=== PATIENT | female | born 1995 | race Caucasian/White ===

== ENCOUNTER → 2020-05-21 11:38 | Outpatient (BNVA) | payer BC, SELFPAY | PROVIDERS: Visit Provider Internal Medicine Gastroenterology | DX: Z76.89 Persons encountering health services in other specified circumstances (principal) ==

== ENCOUNTER 2020-06-09 | Outpatient (REF) | payer BC, SELFPAY ==
[2020-06-14 14:50] LABS: FIT Int Ctl YES; FIT1 NEGATIVE (NEGATIVE); FIT2 NEGATIVE (NEGATIVE)
== END 2020-06-09 00:01 ==
LOC: HO.LNP
PROVIDERS: Visit Provider Internal Medicine Gastroenterology
DX: R19.7 Diarrhea, unspecified (principal); Z12.11 Encounter for screening for malignant neoplasm of colon
CPT/HCPCS: 82274

== ENCOUNTER → 2020-06-15 08:46 | Outpatient (BNVA) | payer BC, SELFPAY | PROVIDERS: PCP Nurse Practitioner Family; Referring Provider Nurse Practitioner Family; Visit Provider Surgery | DX: Z76.89 Persons encountering health services in other specified circumstances (principal) ==

== ENCOUNTER 2020-07-14 07:56 | Day surgery (SDC) | payer BC, SELFPAY ==
[2020-07-05 19:24] VITALS: BMI 66.4
--- NOTE | 2020-07-13 10:29 | HO.ANESPROP2 ---
Documented by User: Zoraida Granados 07/13/20 10:33 HPI - Anesthesia Eval Consult details Narrative: 25yo F for I&D Chronic Labia Majora Abscess Excision performed 03/2020 with GA-LMA 4 PMFSH Past Medical History Medical History Diarrhea Migraine Obesity (BMI 30.0-34.9) Family History Family History Father No problems noted. Mother No problems noted. Maternal Grandfather Cancer Maternal Grandmother Cancer Surgical History Surgical History H/O wisdom tooth extraction History of appendectomy History of incision and drainage Hx of tonsillectomy Social History Social History Household Members: Family Alcohol intake: current Alcohol intake frequency: a few times a month Smoking Status: Never smoker Second Hand Smoke Exposure: No Use of substances other than those prescribed or required for medical reasons: No Advance Directives: No Advance Directives Information Provided: No Advance Directives on File: No Recently lost weight without trying: No Meds Allergies Allergy/AdvReac Type Severity Reaction Status Date / Time nickel [NICKEL] AdvReac Intermediate RASH Verified 07/14/20 08:13 sumatriptan AdvReac Unknown Skin Verified 07/14/20 08:13 burning Home Medications Medication Instructions Recorded Confirmed Type biotin 10,000 mcg capsule mcg PO 05/21/20 05/21/20 History desogestrel-e.estradiol 0.15 1 tab PO DAILY 05/21/20 05/21/20 History mg-0.02 mg(21)/e.estrad 0.01 mg(5) tablet multivitamin 1 tab PO DAILY 05/21/20 05/21/20 History Exam Exam Date and Time: July 13, 2020 1029 Height,Weight and Vital Signs: Height 5 ft 3 in Weight 170 kg Pertinent Lab Results Pertinent Lab Results: Laboratory Tests 08/05/19 04/13/20 09:15 09:00 WBC 7.9 Hgb 14.2 Hct 39.9 Plt Count 397 Sodium 140 Potassium 4.0 Chloride 107 BUN 5 L Creatinine 0.77 Assessment and Plan Assessment Anesthesia Assessment: Chart Reviewed Documented by User: Val Anderson 07/14/20 09:08 PMFSH Past Medical History Medical History Diarrhea Migraine Obesity (BMI 30.0-34.9) Family History Family History Father No problems noted. Mother No problems noted. Maternal Grandfather Cancer Maternal Grandmother Cancer Surgical History Surgical History H/O wisdom tooth extraction History of appendectomy History of incision and drainage Hx of tonsillectomy Social History Social History Household Members: Family Alcohol intake: current Alcohol intake frequency: a few times a month Smoking Status: Never smoker Second Hand Smoke Exposure: No Use of substances other than those prescribed or required for medical reasons: No Advance Directives: No Advance Directives Information Provided: No Advance Directives on File: No Recently lost weight without trying: No Meds Allergies Allergy/AdvReac Type Severity Reaction Status Date / Time nickel [NICKEL] AdvReac Intermediate RASH Verified 07/14/20 08:13 sumatriptan AdvReac Unknown Skin Verified 07/14/20 08:13 burning Home Medications Medication Instructions Recorded Confirmed Type biotin 10,000 mcg capsule mcg PO 05/21/20 05/21/20 History desogestrel-e.estradiol 0.15 1 tab PO DAILY 05/21/20 05/21/20 History mg-0.02 mg(21)/e.estrad 0.01 mg(5) tablet multivitamin 1 tab PO DAILY 05/21/20 05/21/20 History Exam Airway Mallampati Class: I TM Dist: >3cm Neck ROM: Full Loose/Missing/Broken Teeth: No Heart: RRR Lungs: CTA Assessment and Plan Assessment Anesthesia Assessment: Anesthesia Plan Discussed and Chart Reviewed Final Anesthetic Review NPO: Yes ASA Class: II Final Preanesthetic Review: Meds/Allgs Chart Reviewed, Consent Obtained/Reviewed and Anes Risks/Benef Reviewed Patient Risk: Low Procedure Risk: Low Anesthetic Plan Anesthetic Plan: GA Disposition: Standard PACU
[2020-07-13 14:58] VITALS: BMI 30.1
[2020-07-14 08:18] VITALS: BP 129/59; PULSE 98; RESP 16; TEMP 36.4; O2SAT 98
[2020-07-14 08:22] LABS: UPreg QC Valid YES; Urine Pregnancy NEGATIVE (NEGATIVE)
[2020-07-14] MEDS: Lactated Ringers 1,000 ML 100 ML IVCONT (08:31)
--- NOTE | 2020-07-14 08:39 | PC.NURSE ---
MEDS CONFIRMED WITH PATIENT
--- NOTE | 2020-07-14 09:24 | MHC.SHP ---
Pre-Procedural Eval Section A The patient is an INPATIENT: No The History & Physical has been completed within 30 days and I have reviewed it.: Yes Section B Chief Complaint: Epidermoid Cyst of Labia Majora Allergies: Allergies Allergy/AdvReac Type Severity Reaction Status Date / Time nickel [NICKEL] AdvReac Intermediate RASH Verified 07/14/20 08:13 sumatriptan AdvReac Unknown Skin Verified 07/14/20 08:13 burning Plan Diagnosis/Plan: Unchanged Patient has been examined and remains a candidate for the planned procedure
[2020-07-14 10:20] VITALS: BP 113/58; PULSE 78; RESP 17; TEMP 36.1; O2SAT 100
[2020-07-14 10:25] VITALS: BP 104/48; PULSE 83; RESP 16; O2SAT 99
--- NOTE | 2020-07-14 10:29 | W.PM.OPN ---
Operative Note Operative Note Date of Service: 07/14/20 Narrative: Preoperative Diagnosis: Chronic abscess of right labia majora Postoperative diagnosis: Same Procedure: Debridement and marsupialization of chronic abscess right labia majora Anesthesia: General Laryngeal Mask Estimated Blood Loss: 10 cc Specimen: None Immediate Complications: None Indications: This is a 25 year old female who has an approximately 3 year history of recurrent pain and drainage from the inferior aspect of the right labia majora. Antibiotic therapy and prior excision have not lead to resolution of the process. Procedure in detail: With her in the lithotomy position following induction of adequate general anesthesia, time-out procedure was performed. Betadine prep of the vaginal vault and genital, perineal and perianal areas was performed. Sterile drapes were applied. 2 g of cefotetan were infused for antibiotic prophylaxis. The external drainage site was identified at the inferior most aspect of the right labia majora approximately a cm and a half lateral to the introitus. Examination of the surrounding soft tissues revealed mild, a irregular textured somewhat ropey subcutaneous induration that extended medially and slightly inferiorly from the drainage site to about the level of the introitus. A probe was inserted and gently advanced. A tract was identified extending medially to the level of the introitus. An 11 blade was employed to unroof the tract moving from the site of external drainage medially toward the antritis for a distance of 1.2 cm. Bleeding was controlled using pressure and the electrosurgical pencil. Small retractors were inserted. Granulation tissue was present along the tract. This was treated with silver nitrate. The wound was then copiously irrigated with saline solution. Marsupialization was performed using a 4 sutures of 3-0 plain alternating with 4 sutures of 5 0 fast-absorbing plain. The wound was inspected. There was no bleeding. The area was cleansed with saline solution and Adaptic and peripad were applied. She tolerated the procedure well and was transported to the recovery room in stable condition. There were no immediate complications.
[2020-07-14 10:30] VITALS: BP 108/57; PULSE 80; RESP 18; O2SAT 98
[2020-07-14 10:35] VITALS: BP 117/51; PULSE 68; RESP 16; O2SAT 99
[2020-07-14 10:50] VITALS: BP 113/52; PULSE 71; RESP 16; O2SAT 100
--- NOTE | 2020-07-14 11:28 | HO.POSTANES ---
Post Anesthesia Evaluation Post Anesthesia Evaluation Vital Signs: Vital Signs Temp Pulse Resp BP Pulse Ox 07/14/20 10:50 97.0 F 71 16 113/52 L 100 07/14/20 10:35 68 16 117/51 L 99 07/14/20 10:30 80 18 108/57 L 98 07/14/20 10:25 83 16 104/48 L 99 07/14/20 10:20 97.0 F 78 17 113/58 L 100 07/14/20 08:18 97.5 F 98 16 129/59 L 98 Anesthesia: General LMA Mental Status: Awake Pain Control: Satisfactory Nausea/Vomiting: None Hydration: Adequate Anesthesia-Related Issues: No Anes. Related Issues
== END 2020-07-14 11:35 | disposition home or self-care (01) ==
PROVIDERS: Nurse Practitioner; Surgery; PCP Nurse Practitioner Family; Visit Provider Anesthesiology
DX: N76.4 Abscess of vulva (principal)
CPT/HCPCS: 56405; 81025; J1100; J2250; J2405; J2765; J3010

== ENCOUNTER → 2020-07-22 13:35 | Outpatient (BNVA) | payer BC, SELFPAY | PROVIDERS: PCP Nurse Practitioner Family; Referring Provider Nurse Practitioner Family; Visit Provider Surgery | DX: Z76.89 Persons encountering health services in other specified circumstances (principal) ==

== ENCOUNTER → 2020-08-10 10:25 | Outpatient (BNVA) | payer BC, SELFPAY | PROVIDERS: PCP Nurse Practitioner Family; Visit Provider Surgery | DX: Z76.89 Persons encountering health services in other specified circumstances (principal) ==

== ENCOUNTER → 2020-09-07 09:07 | Outpatient (BNVA) | payer BC, SELFPAY | PROVIDERS: PCP Hospitalist; Visit Provider Surgery ==

== ENCOUNTER 2021-01-13 07:18 | Outpatient (REF) | payer BC, SELFPAY ==
--- NOTE | ~2021-01-13 | CT_ITS ---
EXAMINATION: CT HEAD WITHOUT CONTRAST CLINICAL INFORMATION: Headache. COMPARISON: None TECHNIQUE: Contiguous axial imaging was performed from the skull base to vertex without intravenous administration of contrast. Coronal and sagittal reformatted images were obtained. This CT examination was performed using dose optimization techniques as appropriate, variously including the following: *Automated exposure control *Adjustment of mA and/or kV according to patient size (this includes techniques or standardized protocols for targeted exams where dose is matched to indication/reason for exam; i.e. extremities or head) *Use of iterative reconstruction technique DLP: 717 mGy-cm FINDINGS: There is no evidence of acute intracranial hemorrhage or territorial infarction. No abnormal mass effect or midline shift is seen. Mathew to white matter differentiation is well preserved. No extra-axial fluid collections are identified. The ventricles are normal in size. There is no abnormal attenuation within the brain parenchyma. The osseous structures and soft tissues are normal. The mastoid air cells and visualized portions of the paranasal sinuses are well aerated. CT/CT head/brain wo con IMPRESSION: No acute intracranial pathology.
== END 2021-01-13 07:19 | disposition home or self-care (01) ==
LOC: HO.CT 07:18
PROVIDERS: PCP Nurse Practitioner Family; Visit Provider Nurse Practitioner Family
DX: R51.9 Headache, unspecified (principal)
CPT/HCPCS: 70450

== ENCOUNTER 2021-06-27 08:25 | Outpatient (REF) | payer BC, SELFPAY ==
[2021-06-27 11:47] LABS: Appearance Urine CLEAR; Color Urine YELLOW; Glucose Urine UA NEG (NEG); Leukocyte Esterase Urine 1+ (NEG); Nitrite Urine NEG (NEG); Specific Gravity - Urine >= 1.030 (1.005-1.025); UACC Culture Trigger YES; Urine Blood TRACE (NEG); Urine Ketones NEG (NEG); Urine Protein NEG (NEG-TRACE)
[2021-06-27 12:05] LABS: Bacteria Urine 2+ /LPF; Mucus Urine 2+ /LPF; RBC Urine 0-2 /HPF (0); Squamous Epithelial Cell Urine 2+ /LPF
[2021-06-27 12:14] LABS: Alanine Aminotransferase 14 U/L (0-31); Alkaline Phosphatase 75 U/L (39-117); Anion Gap 11 (12-20); Aspartate Amino Transferase 13 U/L (5-31); Bilirubin Total 0.4 mg/dL (0.0-1.0); Blood Urea Nitrogen 8 mg/dL (9-16); Calcium 9.4 mg/dL (8.4-10.2); Carbon Dioxide 26 mmol/L (22-29); Chloride 107 mmol/L (96-108); Cholesterol 180 mg/dL; Estimated Glomerular Filt Rate > 60; Glucose Fasting 87 mg/dL (60-99); HDL Cholesterol 64 mg/dL; LDL Cholesterol Calculated 98 mg/dl; Potassium 4.3 mmol/L (3.3-5.1); Sodium 140 mmol/L (135-145); Total Protein 6.9 g/dL (6.5-8.0); Triglycerides 92 mg/dL
[2021-06-27 12:38] LABS: TSH reflex Free T4 1.53 uIU/mL (0.32-4.0)
== END 2021-06-27 08:26 | disposition home or self-care (01) ==
LOC: HO.HMGCLDS 08:25
PROVIDERS: PCP Nurse Practitioner Family; Visit Provider Nurse Practitioner Family
DX: Z00.00 Encounter for general adult medical examination without abnormal findings (principal)
CPT/HCPCS: 36415; 80053; 80061; 81001; 84443; 87086

== ENCOUNTER 2021-07-21 08:51 | Outpatient (REF) | payer BC, SELFPAY ==
[2021-07-21 11:24] LABS: Appearance Urine HAZY; Color Urine YELLOW; Glucose Urine UA NEG (NEG); Leukocyte Esterase Urine 1+ (NEG); Nitrite Urine POS (NEG); Specific Gravity - Urine 1.025 (1.005-1.025); UACC Culture Trigger YES; Urine Blood 2+ (NEG); Urine Ketones NEG (NEG); Urine Protein NEG (NEG-TRACE)
[2021-07-21 11:43] LABS: Squamous Epithelial Cell Urine 2+ /LPF
[2021-07-21 11:44] LABS: Bacteria Urine 2+ /LPF
[2021-07-21 11:45] LABS: RBC Urine 0-2 /HPF (0)
== END 2021-07-21 08:52 | disposition home or self-care (01) ==
LOC: HO.HMGCLDS 08:51
PROVIDERS: PCP Nurse Practitioner Family; Visit Provider Nurse Practitioner Family
DX: R30.0 Dysuria (principal)
CPT/HCPCS: 81001; 87086; 87088; 87186

== ENCOUNTER 2021-11-18 08:37 | Outpatient (REF) | payer OTHER, SELFPAY ==
[2021-11-20 19:06] LABS: TS Negative Control Passed; TS Panel A 0; TS Panel B 0; TS Positive Control Passed; TSpotTB Negative (Negative)
[2021-11-21 04:14] LABS: ~Hepatitis B Surface Antibody REACTIVE (Nonreactive)
[2021-11-22 04:46] LABS: Rubella IgG Antibody 3.12 Index; Rubeola IgG (Measles) >300.00 AU/mL
== END 2021-11-18 08:38 | disposition home or self-care (01) ==
LOC: HO.HMGCLDS 08:37
PROVIDERS: PCP Nurse Practitioner Family; Visit Provider Nurse Practitioner Family
DX: Z01.84 Encounter for antibody response examination (principal); Z11.1 Encounter for screening for respiratory tuberculosis; Z28.39 Other underimmunization status
CPT/HCPCS: 36415; 86481; 86706; 86735; 86762; 86765; 86787

== ENCOUNTER 2021-11-29 11:36 | Outpatient (REF) | payer OTHER, SELFPAY ==
[2021-11-29 14:11] LABS: Appearance Urine CLEAR; Color Urine YELLOW; Glucose Urine UA NEG (NEG); Leukocyte Esterase Urine 1+ (NEG); Nitrite Urine NEG (NEG); Specific Gravity - Urine 1.015 (1.005-1.025); Urine Blood 1+ (NEG); Urine Ketones NEG (NEG); Urine Protein NEG (NEG-TRACE)
[2021-11-29 14:55] LABS: Bacteria Urine TRACE /LPF; Mucus Urine 1+ /LPF; RBC Urine 0-2 /HPF (0); Squamous Epithelial Cell Urine 1+ /LPF
== END 2021-11-29 11:37 | disposition home or self-care (01) ==
LOC: HO.HMGCLDS 11:36
PROVIDERS: Visit Provider Nurse Practitioner Family
DX: R30.0 Dysuria (principal)
CPT/HCPCS: 81001; 87086

== ENCOUNTER 2022-03-30 09:24 | Outpatient (REF) | payer OTHER, SELFPAY ==
[2022-03-30 11:24] LABS: MANUAL DIFF FLAG NO
[2022-03-30 11:32] LABS: Basophils Absolute Auto 0.1 X10*3/uL (0.0-0.2); Eosinophils Absolute Auto 0.1 X10*3/uL (0.0-0.4); Eosinophils Percent Auto 1.3 % (0-4); Hematocrit 38.6 % (37.0-47.0); Hemoglobin 13.1 g/dl (12.0-16.0); Imm Gran Abs Auto 0.03 X10*3/uL (0.00-0.03); Imm Gran Pct Auto 0.6 % (0.0-0.4); Lymphocytes Absolute Auto 1.9 X10*3/uL (1.2-4.9); Lymphocytes Percent Auto 39.2 % (20-40); Mean Corpuscular HGB Conc 33.9 g/dl (31.0-35.0); Mean Corpuscular Hemoglobin 30.9 pg (27.0-33.0); Mean Platelet Volume 10.6 fL (9.4-12.3); Monocytes Absolute Auto 0.4 X10*3/uL (0.1-1.2); Monocytes Percent Auto 8.1 % (2-11); Neutrophils Absolute Auto 2.4 x10*3/uL (2.0-8.3); Neutrophils Percent Auto 49.8 % (45-73); Platelet Count 353 X10*3/uL (160-400); Red Blood Count 4.24 X10*6/uL (4.20-5.50); White Blood Count 4.8 X10*3/uL (4.8-10.8)
[2022-03-30 12:07] LABS: Ferritin 53 ng/mL (10-122); TSH reflex Free T4 0.97 uIU/mL (0.32-4.0)
[2022-03-30 12:09] LABS: Alanine Aminotransferase 23 U/L (0-31); Albumin Level 4.1 g/dL (3.5-5.0); Alkaline Phosphatase 83 U/L (39-117); Anion Gap 15 (12-20); Aspartate Amino Transferase 18 U/L (5-31); Bilirubin Total 0.3 mg/dL (0.0-1.0); Blood Urea Nitrogen 9 mg/dL (9-16); Calcium 9.5 mg/dL (8.4-10.2); Carbon Dioxide 23 mmol/L (22-29); Chloride 107 mmol/L (96-108); Estimated Glomerular Filt Rate > 60; Glucose Random 89 mg/dL (60-115); Iron 131 mcg/dL (30-160); Percent Iron Saturation 33 % (15-50); Potassium 4.7 mmol/L (3.3-5.1); Sodium 140 mmol/L (135-145); Total Iron Binding Capacity 393 mcg/dL (228-428); Total Protein 7.2 g/dL (6.5-8.0); Unsaturated Iron Binding 262 ug/dL
[2022-03-30 12:46] LABS: Folate 19.2 ng/mL (> or = 4.0); Vitamin B12 393 pg/mL (200-900)
[2022-04-03 23:13] LABS: Lyme Abs Screen <0.90 index
[2022-04-04 12:21] LABS: Vitamin B6 9.2 ng/mL (2.1-21.7)
== END 2022-03-30 09:25 | disposition home or self-care (01) ==
LOC: HO.HMGCLDS 09:24
PROVIDERS: PCP Nurse Practitioner Family; Visit Provider Nurse Practitioner Family
DX: R53.83 Other fatigue (principal)
CPT/HCPCS: 36415; 80053; 82607; 82728; 82746; 83540; 84207; 84443; 85025; 86617; 86618

== ENCOUNTER 2022-06-28 08:18 | Outpatient (REF) | payer OTHER, SELFPAY ==
[2022-06-28 11:18] LABS: MANUAL DIFF FLAG NO
[2022-06-28 11:21] LABS: Appearance Urine Turbid; Color Urine Yellow; Glucose Urine UA Negative (Negative); Leukocyte Esterase Urine Moderate (2+) (Negative); Nitrite Urine Negative (Negative); PH 5.5 (5.0-9.0); UMIC TRIGGER UACC YES; Urine Blood Trace (Negative); Urine Ketones Trace mg/dL (Negative); Urine Protein Negative (Neg-Trace)
[2022-06-28 11:34] LABS: Basophils Absolute Auto 0.1 X10*3/uL (0.0-0.2); Basophils Percent Auto 0.9 % (0-2); Eosinophils Absolute Auto 0.1 X10*3/uL (0.0-0.4); Eosinophils Percent Auto 1.9 % (0-4); Hematocrit 37.7 % (37.0-47.0); Hemoglobin 12.7 g/dl (12.0-16.0); Imm Gran Abs Auto 0.01 X10*3/uL (0.00-0.03); Imm Gran Pct Auto 0.2 % (0.0-0.4); Lymphocytes Absolute Auto 2.2 X10*3/uL (1.2-4.9); Lymphocytes Percent Auto 37.5 % (20-40); Mean Corpuscular HGB Conc 33.7 g/dl (31.0-35.0); Mean Corpuscular Hemoglobin 30.3 pg (27.0-33.0); Mean Platelet Volume 10.3 fL (9.4-12.3); Monocytes Absolute Auto 0.7 X10*3/uL (0.1-1.2); Monocytes Percent Auto 12.2 % (2-11); Neutrophils Absolute Auto 2.8 x10*3/uL (2.0-8.3); Neutrophils Percent Auto 47.3 % (45-73); Platelet Count 353 X10*3/uL (160-400); Red Blood Count 4.19 X10*6/uL (4.20-5.50); Red Cell Distribution Width 12.3 % (11.0-16.0); White Blood Count 5.8 X10*3/uL (4.8-10.8)
[2022-06-28 11:35] LABS: Bacteria Urine 3+ (None Seen); Hyaline Casts Urine 0-2 /LPF (0-2); UACC Culture Trigger YES; WBC Urine >50 /HPF (0-5)
[2022-06-28 12:12] LABS: Alanine Aminotransferase 16 U/L (0-31); Albumin Level 4.2 g/dL (3.5-5.0); Alkaline Phosphatase 81 U/L (39-117); Anion Gap 14 (12-20); Aspartate Amino Transferase 18 U/L (5-31); Bilirubin Total 0.3 mg/dL (0.0-1.0); Blood Urea Nitrogen 10 mg/dL (9-16); Calcium 9.3 mg/dL (8.4-10.2); Carbon Dioxide 24 mmol/L (22-29); Chloride 105 mmol/L (96-108); Cholesterol 212 mg/dL; Estimated Glomerular Filt Rate > 60; Glucose Fasting 88 mg/dL (60-99); HDL Cholesterol 66 mg/dL; LDL Cholesterol Calculated 130 mg/dl; Potassium 4.4 mmol/L (3.3-5.1); Sodium 139 mmol/L (135-145); TSH reflex Free T4 2.23 uIU/mL (0.32-4.0); Total Protein 7.3 g/dL (6.5-8.0); Triglycerides 82 mg/dL
== END 2022-06-28 08:19 | disposition home or self-care (01) ==
LOC: HO.HMGCLDS 08:18
PROVIDERS: PCP Nurse Practitioner Family; Visit Provider Nurse Practitioner Family
DX: Z00.00 Encounter for general adult medical examination without abnormal findings (principal)
CPT/HCPCS: 36415; 80053; 80061; 81001; 84443; 85025; 87086

== ENCOUNTER 2022-07-27 07:50 | Outpatient (REF) | payer OTHER, SELFPAY ==
[2022-07-27 11:20] LABS: Urine Cytology See Pathology rpt
[2022-07-27 11:38] LABS: Appearance Urine Cloudy; Color Urine Dark Yellow; Glucose Urine UA Negative (Negative); Leukocyte Esterase Urine Large (3+) (Negative); Nitrite Urine Negative (Negative); UMIC TRIGGER UA YES; UMIC TRIGGER UACC YES; Urine Blood Negative (Negative); Urine Ketones Negative (Negative); Urine Protein Negative (Neg-Trace)
[2022-07-27 11:56] LABS: Bacteria Urine 4+ (None Seen); Hyaline Casts Urine 0-2 /LPF (0-2); UACC Culture Trigger YES
== END 2022-07-27 07:51 | disposition home or self-care (01) ==
LOC: HO.HMGCLDS 07:50
PROVIDERS: PCP Nurse Practitioner Family; Visit Provider Nurse Practitioner Family
DX: R30.0 Dysuria (principal); R31.29 Other microscopic hematuria
CPT/HCPCS: 81001; 87086; 88112

== ENCOUNTER 2024-06-05 14:13 | Outpatient (AMB) | payer OTHER, SELFPAY ==
--- NOTE | 2024-06-05 14:17 | A.OFFVIS_ITS ---
Vital Signs 3 06/05/24 14:30 Height 5 ft 3 in Weight 182 lb 2 oz BMI 32.3 BP 125/59 L Blood Pressure Location Lt brachial Position Sitting Pulse 94 Intake Visit Reasons: cutaneous abscess Intake Note: Patient is seen in office for evaluation of an abscess. Pt c/o: cyst of the right labia, had it removed twice [address] Lamar, came back about a month ago, size of a golf ball, was I&D and decrease in size, was on antbx, sometimes has discharge, no odor Contract Processor Required: No Accompanied by: Self / Same As Patient Allergies nickel [NICKEL] Adverse Reaction (Intermediate, Verified 06/05/24 14:29) RASH sumatriptan Adverse Reaction (Intermediate, Verified 06/05/24 14:29) Skin burning Medication List - Last Reconciled 06/05/24 by Abraham Colunga MD desog-e.estradiol/e.estradiol 0.15-0.02 mgx21 /0.01 mg x 5 1 tab PO DAILY ruxolitinib 1.5% (Opzelura) appl topical ubrogepant (Ubrelvy) 50 - 100 mg (0.5 - 1 x 100 mg) PO ONCE PRN 30 days HPI Comments Details: 29-year-old female patient with a infected cyst of the labia majora on the right side. This was previously excised x2 but has subsequently returned at the same site. She developed a recurrence in 05/02/2024 and since then she has intermittent periods of pain and discharge. She previously underwent marsupialization performed by Dr. Lamar which seemed to help for several years but has now recurred. She denied any fever or chills, nausea or vomiting. [facility] Medical History Migraine Obesity (BMI 30.0-34.9) Diarrhea Surgical History History of incision and drainage Hx of tonsillectomy H/O wisdom tooth extraction History of appendectomy Family History Father No problems noted. Mother No problems noted. Maternal Grandfather Cancer Maternal Grandmother Cancer Social History Household Members: Family Housing: House Alcohol intake: current Alcohol intake frequency: a few times a month Patient Tobacco Use Status: Never used Tobacco e-Cigarette/Vaping Use: Never Used Second Hand Smoke Exposure: Yes service: No Current occupational status: unemployed Cognitive needs: No Hearing needs: No Vision needs: No Review of Systems Const All systems reviewed & are unremarkable except as noted in HPI and below Physical Exam Const General: cooperative and no acute distress Nutritional Appearance: well nourished Orientation/consciousness: patient oriented x3 Limitations: no limitations HEENT Head: Yes normocephalic and Yes atraumatic Ears: hearing grossly normal bilaterally Resp Effort & Inspection: normal respiratory effort, no audible wheezes, no cough and no respiratory distress Cardio Jugular venous distension: no JVD GI Inspection: Yes normal to inspection Female genitals images: 2 1. 1 cm cystic collection with underlying cord suggestive of a fistulous track extending into the vaginal canal. No evidence of active infection at this time. No discharge can be expressed. Skin Other: Warm, dry, no rash Neuro General: patient oriented x3 Extrem General: Yes no clubbing, cyanosis or edema Assessment & Plan Assessment & Plan (1) Epidermoid cyst of labia majora: Code(s): N90.7 - Vulvar cyst Category: Medical Plan 29-year-old female patient with recurrent epidermal cyst of the posterior right labia majora. This was previously excised with good results however is now returned. Examination does reveal a cystic collection with underlying tract palpable subcutaneously. I recommended an exam under anesthesia and excision of this epidermal cyst of the posterior labia majora. After a discussion of the procedure, risks, and alternatives, she consents to an excision of the right posterior labial majora cyst. Coding Level of Care Code New Pt Level 4 (36325) Diagnoses Epidermoid cyst of labia majora N90.7
[2024-06-05 14:30] VITALS: BP 125/59; PULSE 94; BMI 32.3
== END 2024-06-05 15:00 | disposition home or self-care (01) ==
PROVIDERS: PCP Nurse Practitioner Family; Visit Provider Surgery
DX: N90.7 Vulvar cyst (principal)
CPT/HCPCS: 99204

== ENCOUNTER → 2024-06-05 14:13 | Outpatient (BNVA) | payer OTHER, SELFPAY | PROVIDERS: PCP Nurse Practitioner Family; Visit Provider Surgery ==

== ENCOUNTER 2024-07-28 14:46 | Outpatient (AMB) | payer OTHER, SELFPAY ==
[2024-07-28 14:50] VITALS: BP 122/66; PULSE 85; O2SAT 98; BMI 32.9
--- NOTE | 2024-07-28 14:50 | MHC.PC.OV ---
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 Required: No Accompanied by: Self / Same As Patient Allergies nickel [NICKEL] Adverse Reaction (Intermediate, Verified 07/28/24 16:50) RASH sumatriptan Adverse Reaction (Intermediate, Verified 07/28/24 16:50) Skin burning Medication List - Last Reconciled 07/28/24 by Abraham Beckham, [facility] desog-e.estradiol/e.estradiol 0.15-0.02 mgx21 /0.01 mg x 5 1 tab PO DAILY ruxolitinib 1.5% (Opzelura) appl topical Tobacco use date assessed: 07/28/24 Dental Screening Dental Screen Date: 07/28/24 Did you have a dental visit in the last 12 months?: Yes Did you have a dental problem in the last 6 months where you did not have access to dental care?: No Was dental information given to patient?: Patient has dentist HPI PE HPI Details History of Present Illness Here for a PE. 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 The patient is a 29-year-old female presenting further with concerns about palpitations and associated cardiac symptoms. She reports experiencing palpitations for an extended period, which have recently worsened, particularly during a two-week period where she was ill. The patient attributes flu-like symptoms during this time but tested negative for COVID-19. She experiences ? 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 However, no Holter monitor has been employed to date, and an echocardiogram is scheduled for October. Additionally, she has a history of migraine headaches, which have been severe. She reports waking up with both arms feeling numb, particularly at night or when driving, and has self-diagnosed potential thoracic outlet syndrome. A prior neurological referral was started in 2020, but outcomes remain unspecified. 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 - Neurological: Reports waking with numbness/tingling in arms at night and when driving. - Musculoskeletal: Reports significant arm strain related to job duties. Physical Exam General: Cooperative, healthy appearing, comfortable, no acute distress and well developed Orientation: Patient oriented x3 Limitations: No limitations Head: Normal to inspection Ears: Hearing grossly normal bilaterally Nose: Normal external nose present Face and sinus: Normal facial exam Eyes: Appearance normal, both eyes and all related structures Neck: Normal visual inspection and Yes full ROM Respiratory: Normal respiratory effort and able to speak in complete sentences. Clear to auscultation bilaterally Cardiovascular: Regular rate and rhythm. Normal S1 and S2 GI: Normal to inspection. Soft to palpation and nontender Skin: No rashes or lesions noted Neuro: Patient oriented x3, neg spurlings, no neck pain with ROM Extremities: Normal to inspection Results Plan - Initiate a Holter monitor placement for three days to monitor and evaluate heart activity. - Continue with scheduled echocardiogram in October for further cardiac assessment. - Perform EMG testing on the arms to investigate numbness and tingling - Review recent lab results and order additional labs for complete assessment. - Recommend diary of symptoms and detailed recording of episodes during Holter monitoring, especially correlating episodes with any alcohol intake. - Continue current lifestyle modifications and avoid known triggers for PVCs and migraines, such as excessive caffeine and alcohol. Patient was informed and verbally consented to the use of an ambient scribe for clinic note documentation during this visit. Discussion Notes The patient and I discussed the sensitivity of cardiac monitoring through the Holter to capture potential episodes of arrhythmia. I suggested a three-day monitoring period for logistical simplicity and patient comfort, with alternatives discussed for longer duration if necessary. EMG testing was proposed to elucidate the source of arm numbness, whether neurological or muscular. I advised symptoms tracking, particularly with alcohol consumption, to discern patterns that may contribute to symptom exacerbation. The patient expressed understanding and consented to these diagnostic strategies. I emphasized the importance of consistent follow-up and maintaining lifestyle changes to mitigate symptoms. Family history of cardiovascular and neurological disorders was addressed, with a recommendation for potential genetic counseling discussed briefly. Patient Instructions - Proceed with Holter monitor placement as scheduled. - Attend echocardiogram appointment in October as planned. - Follow through with EMG testing for arm numbness evaluation. - Keep a detailed diary of palpitations, noting any triggers including caffeine or alcohol. - Reach out if experiencing significant worsening in symptoms or if new symptoms arise. - Maintain scheduled follow-ups for comprehensive management of symptoms and conditions. [facility] Medical History Migraine Obesity (BMI 30.0-34.9) Diarrhea Surgical History History of incision and drainage Hx of tonsillectomy H/O wisdom tooth extraction History of appendectomy Family History Father No problems noted. Mother No problems noted. Maternal Grandfather Cancer Maternal Grandmother Cancer Social History Household Members: Family Housing: House Alcohol intake: current Alcohol intake frequency: a few times a month Patient Tobacco Use Status: Never used Tobacco e-Cigarette/Vaping Use: Never Used Second Hand Smoke Exposure: Yes service: No Current occupational status: unemployed Cognitive needs: No Hearing needs: No Vision needs: No Questionnaire PHQ-9 Over the last 2 weeks, how often have you been bothered by any of the following problems? 1. Little interest or pleasure in doing things: not at all 2. Feeling down, depressed, or hopeless: not at all 3. Trouble falling or staying asleep, or sleeping too much: not at all 4. Feeling tired or having little energy: not at all 5. Poor appetite or overeating: not at all 6. Feeling bad about yourself - or that you are a failure or have let yourself or your family down: not at all 7. Trouble concentrating on things, such as reading the newspaper or watching television: not at all 8. Moving or speaking so slowly that other people could have noticed. Or the opposite - being so fidgety or restless that you have been moving around a lot more than usual: not at all 9. Thoughts that you would be better off or of hurting yourself in some way: not at all Total score: 0 Depression Screening Interpretation: Negative Depression Screening Done: Yes 72947 - PHQ-9 Billing: Yes Source: Developed by Drs. Sathya Lewis, Katy Barron, Eleazar Roberts and colleagues, with an educational win from [employer]. Thrive Questionnaire Date Thrive assessed: 07/28/24 I am a: Patient What is your living situation today?: I have a steady place to live Within the past 12 months, did the food you bought not last and you didn't have the money to get more?: Never true Within the past 12 months, did you worry whether your food would run out before you got money to buy more?: Never true Do you have trouble paying for medicines?: No Do you have trouble getting transportation to medical appointments?: No Do you have trouble paying your heating and electricity bill?: No Do you have trouble taking care of your child, family member or friend?: No Do you have trouble with day-to-day activities such as bathing, preparing meals, shopping, managing finances, etc.?: No Are you currently unemployed and looking for a job?: No Are you interested in more education?: No Please select the resources that you would like help with: None Currently or been in a relationship where the following occur: I choose not to answer THRIVE Score: 0 AUDIT C Alcohol Use Questionnaire (AUDIT-C) 1. How often do you have a drink containing alcohol?: Monthly or less 2. How many drinks containing alcohol do you have on a typical day when you are drinking?: 1 or 2 3. How often do you have six or more drinks on one occasion?: Less than monthly Total Score: 2 Score Reviewed/Action Taken: Yes KAMRAN-7 AMB Questionnaire KAMRAN-7 Date KAMRAN - 7 assessed: 07/28/24 Feeling nervous, anxious, or on edge: 0 = Not at all Not being able to stop or control worryin = Not at all Worrying too much about different things: 0 = Not at all Trouble relaxin = Not at all Being so restless that it is hard to sit still: 0 = Not at all Becoming easily annoyed or irritable: 0 = Not at all Feeling afraid as if something awful might happen: 0 = Not at all Total KAMRAN-7 score (0-4 normal; 5-9 mild; 10-14 moderate; 15-21 severe): 0 Source: Developed by Drs. Sathya Lewis, Katy Barron, Eleazar Roberts and colleagues, with an educational win from [employer]. KAMRAN-7 Assessment Billing KAMRAN-7 Assessment Tool: KAMRAN-7 Assessment 08617 Physical exam (Primary Care) Vital Signs: Last Vital Signs Pulse 85 07/28/24 14:50 BP 122/66 07/28/24 14:50 Pulse Ox 98 07/28/24 14:50 BMI result Body Mass Index 32.9 Tobacco/Smoking Status: Tobacco use Status Tobacco use date assessed 07/28/24 07/28/24 14:51 Patient Tobacco Use Status Never used Tobacco 07/28/24 14:51 e-Cigarette/Vaping Use Never Used 07/28/24 14:51 PHQ-9: PHQ-9 Score PHQ-9: Total score 0 07/28/24 15:26 Depression Screening Interpretation: Negative Thrive Assessment: Date of Thrive Assessment Date Thrive assessed 07/28/24 07/28/24 14:51 Currently or been in a relationship where the following occur: I choose not to answer Coding Level of Care Code Est Pt Prev Care 18-39y(40909) Diagnoses Palpitations R00.2 Physical exam Z00.00 Numbness and tingling of both upper extremities R20.0; R20.2 Additional Codes KAMRAN-7 Assessment Billing - KAMRAN-7 Assessment Tool: KAMRAN-7 Assessment 76895 ([id number]) PHQ-9 - 31750 - PHQ-9 Billing: Yes ([id number]) Assessment & Plan Assessment & Plan (1) Palpitations: Code(s): R00.2 - Palpitations Category: Medical (2) Physical exam: Code(s): Z00.00 - Encounter for general adult medical examination without abnormal findings Category: Medical (3) Numbness and tingling of both upper extremities: Code(s): R20.0 - Anesthesia of skin; R20.2 - Paresthesia of skin Category: Medical Plan . Orders: Orders Complete Blood Count Auto Diff Today Z00.00 - Encounter for general adult medical examination without abnormal findings UA CC w/rflx Micro + Cult Today Z00.00 - Encounter for general adult medical examination without abnormal findings Lipid Panel Today Z00.00 - Encounter for general adult medical examination without abnormal findings ECG 7 day holter monitor Today R00.2 - Palpitations NE electromyogram (EMG) Today R20.0 - Anesthesia of skin, R20.2 - Paresthesia of skin Comprehensive [place]. Panel Fast Today Z00.00 - Encounter for general adult medical examination without abnormal findings TSH reflex Free T4 Today Z00.00 - Encounter for general adult medical examination without abnormal findings NE nerve conduction velocity Today R20.0 - Anesthesia of skin, R20.2 - Paresthesia of skin
== END 2024-07-28 15:41 | disposition home or self-care (01) ==
PROVIDERS: PCP Nurse Practitioner Family; Visit Provider Nurse Practitioner Family
DX: R00.2 Palpitations (principal); Z00.00 Encounter for general adult medical examination without abnormal findings; R20.0 Anesthesia of skin; R20.2 Paresthesia of skin

== ENCOUNTER → 2024-07-28 14:46 | Outpatient (BNVA) | payer OTHER, SELFPAY | PROVIDERS: PCP Nurse Practitioner Family; Visit Provider Nurse Practitioner Family | DX: Z00.00 Encounter for general adult medical examination without abnormal findings (principal); R00.2 Palpitations; R20.0 Anesthesia of skin; R20.2 Paresthesia of skin | CPT/HCPCS: 96127 ==

== ENCOUNTER 2024-08-09 09:06 | Outpatient (REF) | payer OTHER, SELFPAY ==
[2024-08-09 11:26] LABS: MANUAL DIFF FLAG NO
[2024-08-09 11:27] LABS: Basophils Absolute Auto 0.1 X10*3/uL (0.0-0.2); Basophils Percent Auto 1.2 % (0-2); Eosinophils Absolute Auto 0.1 X10*3/uL (0.0-0.4); Eosinophils Percent Auto 2.6 % (0-4); Hematocrit 38.4 % (37.0-47.0); Hemoglobin 13.3 g/dl (12.0-16.0); Imm Gran Abs Auto 0.01 X10*3/uL (0.00-0.03); Imm Gran Pct Auto 0.2 % (0.0-0.4); Lymphocytes Absolute Auto 2.5 X10*3/uL (1.2-4.9); Mean Corpuscular HGB Conc 34.6 g/dl (31.0-35.0); Mean Corpuscular Hemoglobin 30.8 pg (27.0-33.0); Mean Corpuscular Volume 88.9 fL (80.0-98.0); Mean Platelet Volume 9.8 fL (9.4-12.3); Monocytes Absolute Auto 0.5 X10*3/uL (0.1-1.2); Neutrophils Absolute Auto 1.9 x10*3/uL (2.0-8.3); Platelet Count 343 X10*3/uL (160-400); Red Blood Count 4.32 X10*6/uL (4.20-5.50)
[2024-08-09 11:33] LABS: Appearance Urine Cloudy; Color Urine Yellow; Glucose Urine UA Negative (Negative); Leukocyte Esterase Urine Negative (Negative); Nitrite Urine Negative (Negative); PH 8.5 (5.0-9.0); Urine Blood Negative (Negative); Urine Ketones Negative (Negative); Urine Protein Negative (Neg-Trace)
[2024-08-09 11:49] LABS: Alanine Aminotransferase 20 U/L (0-31); Albumin Level 4.1 g/dL (3.5-5.0); Alkaline Phosphatase 80 U/L (39-117); Anion Gap 10 (12-20); Aspartate Amino Transferase 21 U/L (5-31); Bilirubin Total 0.4 mg/dL (0.0-1.0); Blood Urea Nitrogen 14 mg/dL (9-16); Calcium 9.5 mg/dL (8.4-10.2); Carbon Dioxide 26 mmol/L (22-29); Chloride 107 mmol/L (96-108); Cholesterol 214 mg/dL (<200); Estimated Glomerular Filt Rate > 60; Glucose Fasting 84 mg/dL (60-99); HDL Cholesterol 74 mg/dL (>40); LDL Cholesterol Calculated 132 mg/dL (<100); Sodium 139 mmol/L (135-145); Total Protein 7.5 g/dL (6.5-8.0); Triglycerides 43 mg/dL (<150)
== END 2024-08-09 09:07 | disposition home or self-care (01) ==
LOC: HO.HMGCLDS 09:06
PROVIDERS: PCP Nurse Practitioner Family; Visit Provider Nurse Practitioner Family
DX: Z00.00 Encounter for general adult medical examination without abnormal findings (principal)
CPT/HCPCS: 36415; 80053; 80061; 81003; 84443; 85025

== ENCOUNTER 2024-08-19 09:01 | Outpatient (REF) | payer OTHER, SELFPAY ==
--- NOTE | 2024-08-19 09:04 | EMG_ITS ---
Bilateral median and ulnar motor and sensory studies were performed. Bilateral radial sensory studies were performed and paraspinal muscles were tested with a needle. IMPRESSION: This study did not reveal any significant abnormality. MD LUZMARIA Rasheed/MARJAN / [id number]
== END 2024-08-19 09:02 | disposition home or self-care (01) ==
LOC: HO.NEURO 09:01
PROVIDERS: PCP Nurse Practitioner Family; Visit Provider Nurse Practitioner Family
DX: R20.0 Anesthesia of skin (principal); R20.2 Paresthesia of skin; R00.2 Palpitations
CPT/HCPCS: 93242; 95886; 95911

== ENCOUNTER → 2024-08-19 10:56 | Outpatient (BNV) | payer OTHER, SELFPAY | PROVIDERS: PCP Nurse Practitioner Family; Visit Provider Internal Medicine | DX: R00.0 Tachycardia, unspecified (principal) | CPT/HCPCS: 93244 ==

== ENCOUNTER 2024-08-27 10:12 | Outpatient (REF) | payer OTHER, SELFPAY ==
[2024-08-30 02:54] LABS: TS Negative Control Passed; TS Panel A 0; TS Panel B 1; TS Positive Control Passed; TSpotTB Negative (Negative)
== END 2024-08-27 10:13 | disposition home or self-care (01) ==
LOC: HO.WFDLDS 10:12
PROVIDERS: Visit Provider Nurse Practitioner Family
DX: Z11.1 Encounter for screening for respiratory tuberculosis (principal)
CPT/HCPCS: 36415; 86481